=== PATIENT | female | born 2000 | race Two or more races ===

== ENCOUNTER 2019-10-12 11:28 | Observation (INO) | payer MEDICAID ==
[~2019-10-12] VITALS: Ht 165.1 cm; Wt 92.5 kg
== END 2019-10-12 13:20 | disposition home or self-care (01) ==
LOC: 8 EST LDRP 11:28
PROVIDERS: ADMIT Obstetrics & Gynecology; ATTEND Obstetrics & Gynecology
DX: O16.3 Unspecified maternal hypertension, third trimester (principal); Z3A.33 33 weeks gestation of pregnancy
CPT/HCPCS: 99281; G0378

== ENCOUNTER 2019-10-18 12:36 | Observation (INO) | payer MEDICAID, MEDICARE ==
[~2019-10-18] VITALS: Ht 162.6 cm; Wt 94.3 kg
[2019-10-18 17:50] LABS: CLARITY URINE CLEAR (CLEAR); COLOR URINE YELLOW (YELLOW); KETONES URINE NEGATIVE (NEGATIVE); LEUKOCYTE ESTERASE URINE NEGATIVE (NEGATIVE); NITRITE URINE NEGATIVE (NEGATIVE); OCCULT BLOOD URINE NEGATIVE (NEGATIVE); PROTEIN URINE NEGATIVE (NEGATIVE); SPECIFIC GRAVITY URINE 1.012 (1.005-1.030); UROBILINOGEN URINE 0.2 E.U./dL (0.2-1.0)
== END 2019-10-18 17:45 | disposition home or self-care (01) ==
LOC: 8 EST LDRP 12:36
PROVIDERS: ADMIT Obstetrics & Gynecology; ATTEND Obstetrics & Gynecology
DX: O16.3 Unspecified maternal hypertension, third trimester (principal); Z3A.34 34 weeks gestation of pregnancy
CPT/HCPCS: 81003; 99281; G0378

== ENCOUNTER 2019-10-31 08:47 | Inpatient (IN) | payer MEDICARE ==
[~2019-10-31] VITALS: Ht 165.1 cm; Wt 98.9 kg
[2019-10-31] MEDS: LACTATED RINGERS 1,000 ML IV SCH ×3 (10:31→15:00)
[2019-10-31] MEDS ORDERED: ACETAMINOPHEN WITH CODEINE 300/30MG TABLET PO ONE (13:00)
[2019-10-31] MEDS ORDERED: NALOXONE HCL 0.4 MG/ML 1ML VIAL IM PRN (14:00)
[2019-10-31] MEDS ORDERED: BUTORPHANOL TARTRATE 2 MG/ML VIAL IV PRN (14:00)
[2019-10-31] MEDS ORDERED: CARBOPROST TROMETHAMINE 250 MCG/ML AMPUL IM PRN (14:00)
[2019-10-31] MEDS ORDERED: METHYLERGONOVINE MALEATE 0.2 MG/ML IM PRN ×2 (14:00→20:30)
[2019-10-31 14:27] LABS: CLARITY URINE TURBID (CLEAR); COLOR URINE YELLOW (YELLOW); KETONES URINE 3+ (NEGATIVE); LEUKOCYTE ESTERASE URINE 2+ (NEGATIVE); NITRITE URINE NEGATIVE (NEGATIVE); OCCULT BLOOD URINE 1+ (NEGATIVE); PH URINE 6.5 (4.5-8.0); PROTEIN URINE 2+ (NEGATIVE); SPECIFIC GRAVITY URINE 1.015 (1.005-1.030)
[2019-10-31 14:27] LABS: HEMATOCRIT. 38.5 % (36.0-48.0); HEMOGLOBIN. 12.6 g/dL (12.0-16.0); MEAN CORPUSCULAR HEMOGLOBIN 25.5 pg (28.0-32.0); MEAN CORPUSCULAR VOLUME 77.6 fL (81.0-99.0); MEAN PLATELET VOLUME 9.3 fl (7.4-10.4); PLATELET 206 x1000/uL (130-400); RED BLOOD CELL COUNT 4.96 mill/uL (4.2-5.4); RED CELL DISTRIBUTION WIDTH 14.8 % (11.6-14.6)
[2019-10-31] MEDS ORDERED: LIDOCAINE HCL 1% 20ML VIAL (Pyxis) INJ INFIL SCH (14:27)
[2019-10-31] MEDS ORDERED: DEXT 5%/LR + PITOCIN 20UNITS/L 1,000 ML IV SCH ×2 (14:27→20:21)
[2019-10-31] MEDS ORDERED: PENICILLIN G POTASSIUM 5 MMU in DEXT 5% WATER 100 ML IV SCH (14:30)
[2019-10-31 14:38] LABS: INR 0.9; PARTIAL THROMBOPLASTIN TIME 34.7 sec (23.4-31.0); PROTHROMBIN TIME 9.9 sec (9.6-11.0)
[2019-10-31 14:47] LABS: *AMPHETAMINES SCREEN URINE NEGATIVE (NEGATIVE); *BARBITURATES SCREEN URINE NEGATIVE (NEGATIVE); *BENZODIAZEPINES SCREEN URINE NEGATIVE (NEGATIVE); *COCAINE SCREEN URINE NEGATIVE (NEGATIVE)
[2019-10-31 14:48] LABS: CANNABINOID URINE SCREEN NEGATIVE (NEGATIVE); METHADONE URINE SCREEN NEGATIVE (NEGATIVE); OPIATES URINE SCREEN NEGATIVE (NEGATIVE); PHENCYCLIDINE URINE SCREEN NEGATIVE (NEGATIVE)
[2019-10-31 14:53] LABS: HEPATITIS B SURFACE ANTIGEN NEGATIVE
[2019-10-31] MEDS ORDERED: ROPIVACAINE HCL/PF EPIDURAL 200 ML EPI SCH (15:00)
[2019-10-31 15:23] LABS: PLATELET ESTIMATE NORMAL
[2019-10-31] MEDS ORDERED: PENICILLIN G POTASSIUM 2.5 MMU in DEXTROSE 5% WATER 50 ML IV SCH (17:00)
[2019-10-31] MEDS ORDERED: PREN1TAB78 MT (17:44)
[2019-10-31] MEDS ORDERED: ACETAMINOPHEN WITH CODEINE 300/30MG TABLET PO PRN (20:30)
[2019-10-31] MEDS ORDERED: LANOLIN OINT 7GM TUBE TOP PRN (20:30)
[2019-10-31] MEDS ORDERED: BISACODYL 10MG SUPP PR PRN (20:30)
[2019-10-31] MEDS ORDERED: HEMORRHOIDAL SUPP PR PRN (20:30)
[2019-10-31] MEDS ORDERED: GLYCERIN/WITCH HAZEL LEAF MEDICATED PAD TOP PRN (20:30)
[2019-10-31] MEDS ORDERED: DIPHENHYDRAMINE 25MG CAPSULE PO PRN (20:30)
[2019-10-31] MEDS ORDERED: BENZOCAINE/LANOLIN/ALOE VERA SPRAY TOP PRN (20:30)
[2019-10-31] MEDS ORDERED: METHYLERGONOVINE MALEATE 0.2MG TABLET PO SCH (21:00)
[2019-10-31] MEDS ORDERED: DOCUSATE SODIUM 100MG CAPSULE PO SCH (21:00)
[2019-10-31 22:30] VITALS: BP 130/80
[2019-10-31 23:00] VITALS: BP 119/57
[2019-10-31] MEDS: IBUPROFEN 400MG TABLET PO PRN (23:01)
[2019-11-01 04:00] VITALS: BP 114/66
[2019-11-01 08:01] LABS: BASOPHILS % 0.2 % (0.0-2.0); EOSINOPHILS % 0.3 % (0.0-5.0); HEMATOCRIT. 36.7 % (36.0-48.0); LYMPHOCYTES % 8.7 % (20.0-50.0); MEAN CORPUSCULAR HEMOGLOBIN 25.6 pg (28.0-32.0); MEAN CORPUSCULAR VOLUME 78.4 fL (81.0-99.0); MONOCYTES % 8.5 % (2.0-8.0); NEUTROPHILS % 82.3 % (40.0-76.0); PLATELET 186 x1000/uL (130-400); RED BLOOD CELL COUNT 4.68 mill/uL (4.2-5.4); RED CELL DISTRIBUTION WIDTH 14.8 % (11.6-14.6)
[2019-11-01 08:02] VITALS: BP 121/77
[2019-11-01] MEDS: MAGNESIUM/ALUMINUM HYDROXIDE/SIMETHICONE 30ML UDC PO SCH ×4 (09:28→21:26)
[2019-11-01] MEDS: PRENATAL VIT/FE FUMARATE/FA TABLET PO SCH (09:28)
[2019-11-01] MEDS: IBUPROFEN 400MG TABLET PO PRN ×2 (09:29→19:41)
[2019-11-01] MEDS: FERROUS SULFATE 325MG TABLET PO SCH ×3 (09:29→17:50)
[2019-11-01] MEDS: SIMETHICONE 80MG TABLET CHEW PO SCH ×4 (09:29→21:26)
[2019-11-01 16:15] VITALS: BP 124/73
[2019-11-01 20:00] VITALS: BP 118/64
[2019-11-01] MEDS: ACETAMINOPHEN WITH CODEINE 300/30MG TABLET PO PRN (21:29)
[2019-11-01 22:00] VITALS: BP 118/64
[2019-11-02 06:00] VITALS: BP 118/71
[2019-11-02 07:56] VITALS: BP 122/66
[2019-11-02] MEDS: MAGNESIUM/ALUMINUM HYDROXIDE/SIMETHICONE 30ML UDC PO SCH (08:27)
[2019-11-02] MEDS: ACETAMINOPHEN WITH CODEINE 300/30MG TABLET PO PRN (08:28)
[2019-11-02] MEDS: FERROUS SULFATE 325MG TABLET PO SCH (08:28)
[2019-11-02] MEDS: SIMETHICONE 80MG TABLET CHEW PO SCH (08:28)
[2019-11-02] MEDS: PRENATAL VIT/FE FUMARATE/FA TABLET PO SCH (08:28)
[2019-11-02] MEDS ORDERED: IBUP-2029 MT (08:40)
== END 2019-11-02 12:00 | disposition home or self-care (01) | DRG 560 ==
LOC: 8 EST LDRP 08:47 → OBSVTOIN 08:47 → 8EST 22:15
PROVIDERS: ADMIT Obstetrics & Gynecology; ATTEND Obstetrics & Gynecology
PROC: 10E0XZZ Delivery of Products of Conception, External Approach (ICD-10-PCS; principal; 2019-10-31)
DX: O69.81X0 Labor and delivery complicated by cord around neck, without compression, not applicable or unspecified (principal); Z37.0 Single live birth; Z3A.39 39 weeks gestation of pregnancy
CPT/HCPCS: 36415; 76805; 80305; 81003; 85025; 86592; 86703; 86762; 86850; 86900; 87077; 87186; 87340; 99281; J2540; J2590; J2795; J7060; J7120

== ENCOUNTER 2021-05-03 09:28 | Inpatient (IN) | payer MEDICAID, MEDICARE ==
[~2021-05-03] VITALS: Ht 165.1 cm; Wt 90.7 kg
[~2021-05-03 09:28] MED LIST: IBUP-2029 MT; PREN1TAB78 MT
[2021-05-03] MEDS ORDERED: LACTATED RINGERS 1,000 ML IV SCH (10:00)
[2021-05-03] MEDS ORDERED: BUTORPHANOL TARTRATE 2 MG/ML VIAL IV PRN (10:00)
[2021-05-03] MEDS ORDERED: NALOXONE HCL 0.4 MG/ML 1ML VIAL IM PRN (10:00)
[2021-05-03] MEDS ORDERED: LIDOCAINE HCL 1% 20ML VIAL (Pyxis) INJ INFIL SCH (10:00)
[2021-05-03] MEDS ORDERED: CARBOPROST TROMETHAMINE 250 MCG/ML AMPUL IM PRN (10:00)
[2021-05-03] MEDS ORDERED: METHYLERGONOVINE MALEATE 0.2 MG/ML IM PRN ×2 (10:00→12:15)
[2021-05-03] MEDS ORDERED: MINERAL OIL 30ML BOTTLE PO NR (10:50)
[2021-05-03 10:53] LABS: CLARITY URINE CLEAR (CLEAR); COLOR URINE YELLOW (YELLOW); KETONES URINE NEGATIVE (NEGATIVE); LEUKOCYTE ESTERASE URINE NEGATIVE (NEGATIVE); NITRITE URINE NEGATIVE (NEGATIVE); OCCULT BLOOD URINE 2+ (NEGATIVE); PROTEIN URINE 1+ (NEGATIVE); SPECIFIC GRAVITY URINE 1.024 (1.005-1.030)
[2021-05-03 10:54] LABS: BASOPHILS % 0.6 % (0.0-2.0); EOSINOPHILS % 2.3 % (0.0-5.0); HEMATOCRIT. 37.3 % (36.0-48.0); LYMPHOCYTES % 27.5 % (20.0-50.0); MEAN CORPUSCULAR HEMOGLOBIN 23.3 pg (28.0-32.0); MEAN CORPUSCULAR VOLUME 72.3 fL (81.0-99.0); MEAN PLATELET VOLUME 9.7 fl (7.4-10.4); MONOCYTES % 8.1 % (2.0-8.0); NEUTROPHILS % 61.5 % (40.0-76.0); PLATELET 209 x1000/uL (130-400); RED BLOOD CELL COUNT 5.15 mill/uL (4.2-5.4); RED CELL DISTRIBUTION WIDTH 15.3 % (11.6-14.6)
[2021-05-03] MEDS ORDERED: PENICILLIN G POTASSIUM 5 MMU in DEXT 5% WATER 100 ML IV SCH (11:00)
[2021-05-03] MEDS: DEXT 5%/LR + PITOCIN 20UNITS/L 1,000 ML IV SCH ×2 (11:07→12:25)
[2021-05-03 11:14] LABS: *AMPHETAMINES SCREEN URINE NEGATIVE (NEGATIVE); *BARBITURATES SCREEN URINE NEGATIVE (NEGATIVE); *BENZODIAZEPINES SCREEN URINE NEGATIVE (NEGATIVE); *COCAINE SCREEN URINE NEGATIVE (NEGATIVE); CANNABINOID URINE SCREEN NEGATIVE (NEGATIVE); PHENCYCLIDINE URINE SCREEN NEGATIVE (NEGATIVE)
[2021-05-03 11:15] LABS: METHADONE URINE SCREEN NEGATIVE (NEGATIVE); OPIATES URINE SCREEN NEGATIVE (NEGATIVE)
[2021-05-03] MEDS ORDERED: RHO(D) IMMUNE GLOBULIN 300 MCG/SYR IM PRN (12:15)
[2021-05-03] MEDS ORDERED: LANOLIN OINT 7GM TUBE TOP PRN (12:15)
[2021-05-03] MEDS ORDERED: IBUPROFEN 400MG TABLET PO PRN (12:15)
[2021-05-03] MEDS ORDERED: DIPHENHYDRAMINE 25MG CAPSULE PO PRN (12:15)
[2021-05-03] MEDS ORDERED: DEXT 5%/LR + PITOCIN 20UNITS/L 1,000 ML IV SCH (12:26)
[2021-05-03 13:00] VITALS: BP 129/78
[2021-05-03 13:21] LABS: INR 0.9; PARTIAL THROMBOPLASTIN TIME 27.2 sec (23.4-31.0); PROTHROMBIN TIME 9.9 sec (9.6-11.0)
[2021-05-03 13:30] VITALS: BP 133/83
[2021-05-03] MEDS ORDERED: PENICILLIN G POTASSIUM 2.5 MMU in DEXTROSE 5% WATER 50 ML IV SCH (15:00)
[2021-05-03 15:06] LABS: HEPATITIS B SURFACE ANTIGEN NEGATIVE
[2021-05-03 21:10] VITALS: BP 117/76
[2021-05-04] MEDS: IBUPROFEN 800MG TABLET PO PRN ×3 (01:53→20:34)
[2021-05-04 04:30] VITALS: BP 121/70
[2021-05-04 06:31] LABS: EOSINOPHILS % 1.3 % (0.0-5.0); HEMATOCRIT. 28.2 % (36.0-48.0); HEMOGLOBIN. 9.3 g/dL (12.0-16.0); LYMPHOCYTES % 25.7 % (20.0-50.0); MEAN CORPUSCULAR HEMOGLOBIN 23.6 pg (28.0-32.0); MEAN CORPUSCULAR VOLUME 71.5 fL (81.0-99.0); MONOCYTES % 6.4 % (2.0-8.0); NEUTROPHILS % 65.6 % (40.0-76.0); PLATELET 167 x1000/uL (130-400); RED BLOOD CELL COUNT 3.95 mill/uL (4.2-5.4); RED CELL DISTRIBUTION WIDTH 15.8 % (11.6-14.6)
[2021-05-04 08:00] VITALS: BP 125/81
[2021-05-04] MEDS: PRENATAL VIT/FE FUMARATE/FA TABLET PO SCH (10:30)
[2021-05-04 16:00] VITALS: BP 118/76
[2021-05-04 20:00] VITALS: BP 113/67
[2021-05-05 04:15] VITALS: BP 115/69
[2021-05-05] MEDS ORDERED: FERR325T6 MT (06:24)
[2021-05-05 07:46] VITALS: BP 111/63
[2021-05-05] MEDS: PRENATAL VIT/FE FUMARATE/FA TABLET PO SCH (08:43)
[2021-05-05] MEDS: IBUPROFEN 800MG TABLET PO PRN (08:44)
== END 2021-05-05 13:00 | disposition home or self-care (01) | DRG 560 ==
LOC: OBSVTOIN 09:28 → 8 EST LDRP 09:28 → 8EST 12:36
PROVIDERS: ADMIT Obstetrics & Gynecology; ATTEND Obstetrics & Gynecology
PROC: 10E0XZZ Delivery of Products of Conception, External Approach (ICD-10-PCS; principal; 2021-05-03)
PROC: 0KQM0ZZ Repair Perineum Muscle, Open Approach (ICD-10-PCS; 2021-05-03)
DX: O70.1 Second degree perineal laceration during delivery (principal); Z37.0 Single live birth; D62 Acute posthemorrhagic anemia; O99.03 Anemia complicating the puerperium; Z3A.39 39 weeks gestation of pregnancy; Z20.822 Contact with and (suspected) exposure to COVID-19
CPT/HCPCS: 36415; 80305; 81003; 85025; 86592; 86703; 86762; 86850; 86900; 87340; 87426; 99281; J0595; J2310; J2540; J2590; J3490; J7060; J7120

== ENCOUNTER 2021-05-18 21:16 | Emergency (ER) | payer MEDICARE ==
[~2021-05-18] VITALS: Ht 165.1 cm; Wt 80.5 kg
[~2021-05-18 21:16] MED LIST changes: +FERR325T6 MT
[2021-05-18] MEDS ORDERED: ACETAMINOPHEN 325MG TABLET PO STA (22:53)
[2021-05-18] MEDS ORDERED: ONDANSETRON HCL 4MG/2ML INJ IM STA (22:53)
[2021-05-18] MEDS ORDERED: ONDA4TAB5 PO (23:29)
[2021-05-18] MEDS ORDERED: ACET-2708 PO (23:29)
[2021-05-18 23:57] VITALS: BP 123/79
== END 2021-05-18 23:57 | disposition home or self-care (01) ==
LOC: ER 21:16
DX: K52.9 Noninfective gastroenteritis and colitis, unspecified (principal); J06.9 Acute upper respiratory infection, unspecified; Z20.822 Contact with and (suspected) exposure to COVID-19
CPT/HCPCS: 87426; 96372; 99283; J2405

== ENCOUNTER 2022-08-05 13:57 | Emergency (ER) | payer MEDICAID, MEDICARE ==
[~2022-08-05] VITALS: Ht 165.1 cm; Wt 75.0 kg
[~2022-08-05 13:57] MED LIST changes: +ACET-2708 PO; +ONDA4TAB5 PO
[2022-08-05] MEDS ORDERED: KETOROLAC 30MG/ML VIAL IM ONE (16:45)
[2022-08-05] MEDS ORDERED: PENICILLIN G BENZATHINE 1,200,000 UNITS/2ML SYR IM ONE (16:45)
[2022-08-05 17:28] VITALS: BP 155/113
== END 2022-08-05 17:49 | disposition home or self-care (01) ==
LOC: ER 13:57
DX: J02.9 Acute pharyngitis, unspecified (principal); R11.2 Nausea with vomiting, unspecified; M79.18 Myalgia, other site; R05.9 Cough, unspecified; Z20.822 Contact with and (suspected) exposure to COVID-19; E03.9 Hypothyroidism, unspecified
CPT/HCPCS: 81025; 87070; 87426; 87430; 96372; 99284; J0561; J1885